=== PATIENT | female | born 2000 | race Caucasian/White ===

== ENCOUNTER 2020-07-22 19:33 | Emergency (ER) | payer BC ==
[~2020-07-22] VITALS: Ht 172.7 cm; Wt 63.5 kg
[2020-07-22] MEDS ORDERED: IBU600 MG PO (21:42)
[2020-07-22] MEDS ORDERED: NORCO5 PO (21:42)
[2020-07-22 21:56] VITALS: BP 135/85
--- NOTE | 2020-07-24 07:45 | EKG ---
[place] [address] [address] [facility] [place] [address] ELECTROCARDIOGRAM REPORT Name: LUIS MERIDA Room #: DEP Herber#: [id number] Admission: 07/22/20 Attend Phys: Discharge: 07/22/20 Date of : [birth year] Report #: [id number] [facility] ED Test Date: 2020-07-22 Test Time: 19:38:14 Pat Name: LUIS MERIDA Department: Room: Gender: F [employer]: MARITZA : 2000 Requested By: Delbert Pacheco Order Number: [id number] MD: Deion La Measurements Intervals [place] Rate: 85 P: 61 OH: 119 QRS: 64 QRSD: 92 T: 56 QT: 341 QTc: 406 Interpretive Statements Sinus rhythm Borderline short [place] interval RSR' in V1 or V2, right VCD or RVH No previous ECG available for comparison Electronically Signed On 07-24-2020 7:45:38 CDT by Deion La [email or web address] <ELECTRONICALLY SIGNED> By: Deion La MD, [facility] 07/24/20 0745 [id number] 193 Deion La MD, FACC /EPI
== END 2020-07-22 21:56 | disposition home or self-care (01) ==
LOC: ER 19:33
DX: S16.1XXA Strain of muscle, fascia and tendon at neck level, initial encounter (principal); S80.02XA Contusion of left knee, initial encounter; S40.012A Contusion of left shoulder, initial encounter; S50.11XA Contusion of right forearm, initial encounter; S20.211A Contusion of right front wall of thorax, initial encounter; R51.9 Headache, unspecified; R42 Dizziness and giddiness; F17.210 Nicotine dependence, cigarettes, uncomplicated; V49.9XXA Car occupant (driver) (passenger) injured in unspecified traffic accident, initial encounter; Y93.89 Activity, other specified; Y92.488 Other paved roadways as the place of occurrence of the external cause; Y99.8 Other external cause status